=== PATIENT | female | born 1945 | race Caucasian/White ===

== ENCOUNTER 2020-12-24 11:56 | Emergency (ER) | payer MEDICARE, SELFPAY ==
--- NOTE | ~2020-12-24 | XR_ITS ---
EXAMINATION: XR KNEE, LEFT CLINICAL INFORMATION: Atraumatic left knee pain/swelling COMPARISON: None TECHNIQUE: Four views of the left knee. FINDINGS: There is moderate reduction in medial and patellar femoral compartment joint space with periarticular spurring. No acute fracture or dislocation lytic process seen. No abnormal joint effusion seen. XR/XR knee LT 4V IMPRESSION: Advanced degenerative changes left knee. No acute fracture or dislocation seen.
[2020-12-24 12:10] VITALS: BP 147/61; PULSE 81; RESP 16; TEMP 36.6; O2SAT 95; BMI 31.2
--- NOTE | 2020-12-24 12:52 | ED_ITS ---
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 She reports she has a limping gait due to the pain. She denies any fevers, chills, chest pain, shortness of breath, dyspnea on exertion, orthopnea, palpitations, calf tenderness, history of cancer, recent immobilization, history of cancer, history of DVT or PE, history of hypercoagulation disorder, recent travel on a long plane train or long car ride greater than 6 hours or injury to the actual joint. Denies any other symptoms complaints concerns or injuries. MD Complaint: joint swelling and joint paint Onset (ago): day(s) (Since last night worse this morning) Pain Consistency: constant Location: left and knee Severity scale (1-10): >10 Quality: aching and other (Intermittent when she walks although resolves if she sits down) Radiation: none Relieving factors: immobilization Exacerbating factors: weight bearing, walking and palpation Associated symptoms: denies other symptoms Related Data Previous Rx's Medication Instructions Recorded acetaminophen 500 mg tablet 1,000 mg PO QID PRN #14 tab 12/24/20 (Tylenol Extra Strength) naproxen 500 mg tablet 500 mg PO BID PRN #10 tab 12/24/20 oxycodone 5 mg tablet 5 mg PO BID PRN #10 tab 12/24/20 Allergies Allergy/AdvReac Type Severity Reaction Status Date / Time No Known Allergies Allergy Verified 12/24/20 12:13 [No Known Allergies*] Review of Systems Review of Systems: Constitutional : No changes in activity, No lethargy, No recent prior head injury, No agitation, No increased fussiness ENT/Mouth : No Ear Pain, No Nasal discharge/drainage Eyes: No Eye Pain, No Swelling, No Redness, No Foreign Body, No Vision Changes Cardiovascular : No Chest Pain, No SOB Respiratory : No Cough Gastrointestinal : No Nausea, No Vomiting, No abdominal Pain Genitourinary : No Dysuria, No Urinary Frequency, No Urinary Incontinence, No Urgency, No Flank Pain Musculoskeletal : + joint pain, No neck stiffness, No back pain/injury Skin : No lacerations Neuro : No unsteady gait, No Paresthesias, No Loss of Consciousness, No altered mental status, No Headache Yes all other systems are reviewed and are negative [facility] Past Medical History Attestation statement: The following information was validated with the patient. Medical History FH: cholecystectomy FH: total knee replacement High cholesterol HTN (hypertension) Parathyroid abnormality Surgical History H/O foot surgery Social History Social History Advance Directives: No Advance Directives Information Provided: No Physical Exam Vital Signs: Vital Signs: Last Vital Signs Temp 97.9 F 12/24/20 12:10 Pulse 81 12/24/20 12:10 Resp 16 12/24/20 12:10 BP 147/61 H 12/24/20 12:10 Pulse Ox 95 12/24/20 12:10 Body Mass Index 31.2 vital signs have been reviewed as normal and appeared to be correct. Blood pressure normal. Heart rate normal. Respiration rate normal. Temperature normal. Oxygen saturation normal. Appearance: Alert. Oriented X3. No acute distress. Head: Normal external exam. Normocephalic. Atraumatic. Eyes: PERRLA. EOMI. Conjunctiva and sclera normal. Eyelids normal. ENT: Pharynx normal. Uvula midline. Moist mucous membranes. Neck: Normal inspection. Neck supple. FROM. No adenopathy. Thyroid Normal. No meningeal signs. No neck mass noted. CVS: Normal heart rate and rhythm. Heart sound normal. Pulses normal throughout. No murmurs/rales/gallops. Respiratory: No respiratory distress. Painless inspiration. Breath sounds normal. No wheezes/rales/rhonchi noted. Chest nontender. No accessory muscle usage noted or decreased air movement noted. Back: Full range of motion noted. No rashes/lesion/induration/fluctuance or signs of infection noted. Skin: Skin warm and dry. Normal skin color. Normal skin turgor. No rashes/lesions/lacerations noted. Extremities: Patient with tenderness to palpation to left knee joint at the medial malleolus/tibial aspect with mild soft tissue swelling. No ligamentous laxity is noted. No erythema/fluctuance or induration is noted. Patient has full range of motion no pain with full range of motion. No lower extremity edema. No calf tenderness is noted. Otherwise all other extremities exhibit normal range of motion and nontender. Neuro: Oriented X 3. No motor deficit. No sensory deficit. Reflexes normal. Normal steady gait. No focal neuro deficits noted. Vascular: + radial pulses/+ 2 distal pedal pulses/+2 dorsalis pedis b/l. Normal cap refill. No cyanosis noted to upper extremity nails and lower extremity toes nails. 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 She reports she has a limping gait due to the pain. She denies any fevers, chills, chest pain, shortness of breath, dyspnea on exertion, orthopnea, palpitations, calf tenderness, history of cancer, recent immobilization, history of cancer, history of DVT or PE, history of hypercoagulation disorder, recent travel on a long plane train or long car ride greater than 6 hours or injury to the actual joint. Denies any other symptoms complaints concerns or injuries. X-ray obtained FINDINGS: There is moderate reduction in medial and patellar femoral compartment joint space with periarticular spurring. No acute fracture or dislocation lytic process seen. No abnormal joint effusion seen.? XR/XR knee LT 4V IMPRESSION: Advanced degenerative changes left knee. No acute fracture or dislocation seen. - I considered DVT although not consistent with DVT as patient has point tenderness and she does not have any lower extremity edema or calf tenderness and no edema in the posterior leg at all per the patient. Therefore will place in an Saran wrap and treat symptomatic. Patient understands agrees with this plan to follow-up with her primary care provider and to return if any new or worsening symptoms. MDM - Extremity (Nontraumatic) Medical Records Attestation: I reviewed the patient's medical records. Discharge Plan Discharge Clinical Impression: Degenerative joint disease of knee, left Patient Disposition: Home, Self-Care Instructions: Arthritis (ED) Prescriptions: New acetaminophen [Tylenol Extra Strength] 500 mg tablet 1,000 mg PO QID PRN (Reason: fever or pain) Qty: 14 RF: 0 naproxen 500 mg tablet 500 mg PO BID PRN (Reason: pain) Qty: 10 RF: 0 oxycodone 5 mg tablet 5 mg PO BID PRN (Reason: pain) Qty: 10 RF: 0 Referrals: Shruti Ghotra MD [Physician] - 2 weeks Print Language: Swiss
== END 2020-12-24 13:21 | disposition home or self-care (01) ==
PROVIDERS: Emergency Provider Emergency Medicine
DX: M17.12 Unilateral primary osteoarthritis, left knee (principal); I10 Essential (primary) hypertension; E78.5 Hyperlipidemia, unspecified; Z79.899 Other long term (current) drug therapy
CPT/HCPCS: 73564; 99283